=== PATIENT | male | born 1980 | race Caucasian/White ===

== ENCOUNTER 2019-03-09 16:14 | Emergency (ER) | payer OTHER, SELFPAY ==
[2019-03-09 16:24] VITALS: BP 132/73; PULSE 71; RESP 18; TEMP 36.9; O2SAT 99; BMI 28.8
--- NOTE | 2019-03-09 16:59 | ED.SKABFB ---
HPI - Skin/Abscess/Foreign Bdy <Tiffany Moe PA-C - Last Filed: 03/09/19 21:08> General Chief complaint: Skin/Abscess/Foreign Body Stated complaint: right elbow pain since yesterday,swelling and heat Time Seen by Provider: 03/09/19 16:59 Source: patient Mode of arrival: ambulatory Limitations: no limitations History of Present Illness HPI narrative: This Healthy left-handed 38-year-old male comes to ED secondary to right elbow redness, pain and swelling. He states that 02/23 he was wrestling on an asphalt surface, and scraped this superficially, like road rash. He states that he just rinsed it off, nothing embedded. He states that he had some small scratches and scabs that have been somewhat itchy, and admits that he has been scratching the area a little bit, but no open wounds. He states he noticed this was a little bit red and sore last night, describes as a feeling of soreness like he would get after playing racquetball, but has not been playing. He states that the elbow feels tight as well as sore and redness has worsened today and warm to touch. He denies any fever, pain is not acutely worse. Redness is not clearly worse today but definitely worse than last night per his . He states he does sometimes sit with pressure on that elbow when driving or when at his desk. Related Data Previous Rx's Medication Instructions Recorded sulfamethoxazole-trimethoprim 1 tab PO BID 7 Days #14 tab 03/09/19 [Bactrim DS] cephalexin [Keflex] 500 mg PO Q6H 7 Days #28 cap 03/10/19 Allergies Allergy/AdvReac Type Severity Reaction Status Date / Time No Known Drug Allergies Allergy Verified 03/09/19 16:29 Review of Systems <Tiffany Moe PA-C - Last Filed: 03/09/19 21:08> Review of Systems ROS Unobtainable: All systems reviewed & are unremarkable except as noted in HPI and below PFSH <Tiffany Moe PA-C - Last Filed: 03/09/19 21:08> Medical History (Updated 03/10/19 @ 20:57 by Tiffany Moe PA-C) No chronic problems (Resolved) Status post vasectomy (Resolved) Surgical History (Updated 03/09/19 @ 17:29 by Tiffany Moe PA-C) Status post labral repair of shoulder (Resolved) Social History Smoking Status: Former smoker Social History Smoking Status: Former smoker Exam <Tiffany Moe PA-C - Last Filed: 03/09/19 21:08> Narrative Exam Narrative: GENERAL APPEARANCE: Patient sitting comfortably, in no distress. LUNGS: Clear to auscultation bilaterally. HEART: Rate and rhythm regular without murmur, normal S1 and S2, no S3 or S4. MUSCULOSKELETAL: Right elbow is moderate effusion not localized over the olecranon. Tender to touch over the olecranon and bony prominences. He has full active range of motion of the elbow. No tenderness over the forearm or upper arm or elsewhere over the right upper extremity NEUROVASCULAR: Right hand and fingers are warm and pink with brisk cap refill, sensation is grossly intact DERMATOLOGIC: Warm erythema over the olecranon and central elbow, some patchy extension surrounding Initial Vital Signs Initial Vital Signs: Vital Signs Temperature 98.4 F 03/09/19 16:24 Pulse Rate 71 03/09/19 16:24 Respiratory Rate 18 03/09/19 16:24 Blood Pressure 132/73 03/09/19 16:24 Pulse Oximetry 99 03/09/19 16:24 <Montserrat Srivastava DO - Last Filed: 03/12/19 23:49> Initial Vital Signs Initial Vital Signs: Vital Signs Temperature 98.4 F 03/09/19 16:24 Pulse Rate 71 03/09/19 16:24 Respiratory Rate 18 03/09/19 16:24 Blood Pressure 132/73 03/09/19 16:24 Pulse Oximetry 99 03/09/19 16:24 Course <Tiffany Moe PA-C - Last Filed: 03/09/19 21:08> Additional Information: Margins of erythema inked for monitoring. Patient agrees to return if any acutely worsening sx over weekend and will f/u with PCP first of next week Orders Ordered: Discontinued Medications Ibuprofen (Advil) 800 mg PO NOW ONE Stop: 03/09/19 17:16 Last Admin: 03/09/19 17:30 Dose: 800 mg Trimethoprim/Sulfamethoxazole (Bactrim Ds Prepack) 1 bottle MISC SEEINSTR ONE Stop: 03/09/19 18:10 Last Admin: 03/09/19 18:12 Dose: 1 bottle Vital Signs - 8 hr 03/09/19 16:24 03/09/19 18:12 Temperature 98.4 F Pulse Rate 71 67 Respiratory Rate 18 15 Blood Pressure 132/73 Blood Pressure [Left Arm] 143/78 H Pulse Oximetry 99 100 <Montserrat Srivastava DO - Last Filed: 03/12/19 23:49> Orders Ordered: Discontinued Medications Ibuprofen (Advil) 800 mg PO NOW ONE Stop: 03/09/19 17:16 Last Admin: 03/09/19 17:30 Dose: 800 mg Trimethoprim/Sulfamethoxazole (Bactrim Ds Prepack) 1 bottle MISC SEEINSTR ONE Stop: 03/09/19 18:10 Last Admin: 03/09/19 18:12 Dose: 1 bottle Vital Signs - 8 hr 03/09/19 16:24 03/09/19 18:12 Temperature 98.4 F Pulse Rate 71 67 Respiratory Rate 18 15 Blood Pressure 132/73 Blood Pressure [Left Arm] 143/78 H Pulse Oximetry 99 100 MDM - Skin/Abscess/Foreign Bdy <Tiffany Moe PA-C - Last Filed: 03/09/19 21:08> Lab Data Attestation: I reviewed the patient's lab results. Result diagrams: 03/09/19 17:25 03/09/19 17:25 Lab Results 03/09/19 03/09/19 Range/Units 17:25 17:25 WBC 14.0 H (4.5-11.0) X10^3/uL RBC 4.56 (4.5-5.9) X10^6/uL Hgb 13.6 (13.5-17.5) g/dL Hct 41.1 (41-53) % MCV 90.1 (80-100) fL MCH 29.9 (26-34) PG MCHC 33.2 (30-36) % RDW 12.7 (11.6-14.8) % Plt Count 199 (150-400) X10^3/uL Neut % (Auto) 72.1 (50-75) % Lymph % (Auto) 18.4 L (25-40) % [place] % (Auto) 7.3 (3-14) % Eos % (Auto) 1.8 L (2-4) % Baso % (Auto) 0.4 (0-2) % Neut # (Auto) 88539 H (1475-6018) /uL Lymph # (Auto) 2600 (9961-5748) /uL [place] # (Auto) 1000 H (0-900) /uL Eos # (Auto) 200 (0-450) /uL Baso # (Auto) 100 (0-100) /uL Sodium 138 (137-145) mmol/L Potassium 4.0 (3.4-5.1) mmol/L Chloride 104 (98-107) mmol/L Carbon Dioxide 28 (22-32) mmol/L BUN 20 (9-20) mg/dL Creatinine 0.90 (0.66-1.25) mg/dL Estimated GFR > 60.0 (>60) mL/min BUN/Creatinine Ratio 22.2 H (6-22) Glucose 72 (70-100) mg/dL Calcium 9.2 (8.4-10.2) mg/dL Imaging Data elbow: Radiologist's impression: [place] [address] XRay Report Signed Patient: Pito Tomas#: [id number] : 1980Acct:[id number] Age/Sex: 38 / MDate of Service: 03/09/19 Loc: ED Accession Number: [id number] Procedure: XR elbow RT min 3V Ordering Provider: Tiffany Moe P.A-C PROCEDURE: XR ELBOW RT MIN 3V INDICATIONS: bone pain, cellulitis TECHNIQUE: 3 views of the elbow were acquired. COMPARISON: None. FINDINGS: Bones: No fractures or dislocations. No suspicious bony lesions. Soft tissues: No elbow joint effusion. Soft tissue swelling is seen. IMPRESSION: Soft tissue swelling is seen, which is consistent with the given history of cellulitis. No focal bony abnormality is seen. If there is strong suspicion for developing osteomyelitis, please consider a dedicated MRI with contrast for further evaluation (assuming that there is no contraindication to MRI). Dictated by: Tc Barroso M.D. on 03/09/2019 at 16:45 Approved by: Tc Barroso M.D. on 03/09/2019 at 16:46 <Montserrat Srivastava DO - Last Filed: 03/12/19 23:49> Lab Data Lab Results 03/09/19 03/09/19 Range/Units 17:25 17:25 WBC 14.0 H (4.5-11.0) X10^3/uL RBC 4.56 (4.5-5.9) X10^6/uL Hgb 13.6 (13.5-17.5) g/dL Hct 41.1 (41-53) % MCV 90.1 (80-100) fL MCH 29.9 (26-34) PG MCHC 33.2 (30-36) % RDW 12.7 (11.6-14.8) % Plt Count 199 (150-400) X10^3/uL Neut % (Auto) 72.1 (50-75) % Lymph % (Auto) 18.4 L (25-40) % [place] % (Auto) 7.3 (3-14) % Eos % (Auto) 1.8 L (2-4) % Baso % (Auto) 0.4 (0-2) % Neut # (Auto) 07114 H (1858-3415) /uL Lymph # (Auto) 2600 (8824-4082) /uL [place] # (Auto) 1000 H (0-900) /uL Eos # (Auto) 200 (0-450) /uL Baso # (Auto) 100 (0-100) /uL Sodium 138 (137-145) mmol/L Potassium 4.0 (3.4-5.1) mmol/L Chloride 104 (98-107) mmol/L Carbon Dioxide 28 (22-32) mmol/L BUN 20 (9-20) mg/dL Creatinine 0.90 (0.66-1.25) mg/dL Estimated GFR > 60.0 (>60) mL/min BUN/Creatinine Ratio 22.2 H (6-22) Glucose 72 (70-100) mg/dL Calcium 9.2 (8.4-10.2) mg/dL Discharge Plan Departure Patient Disposition: Home Clinical Impression: Cellulitis Qualifiers: Site of cellulitis: extremity Site of cellulitis of extremity: upper extremity Laterality: right Qualified Code(s): L03.113 - Cellulitis of right upper limb Discharge Date/Time: 03/09/19 18:19 Interventions: ED Discharge Assessment Last Done: 03/09/19 18:17 Instructions: DI for Cellulitis -- Child Activity Restrictions/Additional Instructions: As we talked about, you should return if you have acutely worsening symptoms such as rapidly spreading redness past the borders that we outlined, increased swelling or pain, or new symptoms such as fever over the weekend. Take your 1st dose of antibiotic now and 2nd dose at bedtime if you go to bed late or early in the morning. I have sent in a prescription for you to your pharmacy to medicinal plant picker tomorrow so you can continue this. Be sure to keep all pressure off of the elbow area as we talked about. Prescriptions: New sulfamethoxazole-trimethoprim [Bactrim DS] 800-160 mg tablet 1 tab PO BID 7 Days Qty: 14 RF: 0 No Action cephalexin [Keflex] 500 mg capsule 500 mg PO Q6H 7 Days Qty: 28 RF: 0 Referrals: Miki Saucedo [Non-Staff] - <Montserrat Srivastava DO - Last Filed: 03/12/19 23:49> Cosign ED Attending Kangature Attestation: I was immediately available in the department for consultation. Documentation has been reviewed. I agree with assessment and plan.
--- NOTE | 2019-03-09 17:15 | DI.RAD.S_ITS ---
PROCEDURE: XR ELBOW RT MIN 3V INDICATIONS: bone pain, cellulitis TECHNIQUE: 3 views of the elbow were acquired. COMPARISON: None. FINDINGS: Bones: No fractures or dislocations. No suspicious bony lesions. Soft tissues: No elbow joint effusion. Soft tissue swelling is seen. IMPRESSION: Soft tissue swelling is seen, which is consistent with the given history of cellulitis. No focal bony abnormality is seen. If there is strong suspicion for developing osteomyelitis, please consider a dedicated MRI with contrast for further evaluation (assuming that there is no contraindication to MRI). Dictated by: Tc Barroso M.D. on 03/09/2019 at 16:45 Approved by: Tc Barroso M.D. on 03/09/2019 at 16:46
--- NOTE | 2019-03-09 17:26 | ED_ITS ---
HPI - Skin/Abscess/Foreign Bdy <Tiffany Moe PA-C - Last Filed: 03/09/19 21:08> General Chief complaint: Skin/Abscess/Foreign Body Stated complaint: right elbow pain since yesterday,swelling and heat Time Seen by Provider: 03/09/19 16:59 Source: patient Mode of arrival: ambulatory Limitations: no limitations History of Present Illness HPI narrative: This Healthy left-handed 38-year-old male comes to ED secondary to right elbow redness, pain and swelling. He states that 02/23 he was wrestling on an asphalt surface, and scraped this superficially, like road rash. He states that he just rinsed it off, nothing embedded. He states that he had some small scratches and scabs that have been somewhat itchy, and admits that he has been scratching the area a little bit, but no open wounds. He states he noticed this was a little bit red and sore last night, describes as a feeling of soreness like he would get after playing racquetball, but has not been playing. He states that the elbow feels tight as well as sore and redness has worsened today and warm to touch. He denies any fever, pain is not acutely worse. Redness is not clearly worse today but definitely worse than last night per his . He states he does sometimes sit with pressure on that elbow when driving or when at his desk. Related Data Previous Rx's Medication Instructions Recorded sulfamethoxazole-trimethoprim 1 tab PO BID 7 Days #14 tab 03/09/19 [Bactrim DS] cephalexin [Keflex] 500 mg PO Q6H 7 Days #28 cap 03/10/19 Allergies Allergy/AdvReac Type Severity Reaction Status Date / Time No Known Drug Allergies Allergy Verified 03/09/19 16:29 Review of Systems <Tiffany Moe PA-C - Last Filed: 03/09/19 21:08> Review of Systems ROS Unobtainable: All systems reviewed & are unremarkable except as noted in HPI and below PFSH <Tiffany Moe PA-C - Last Filed: 03/09/19 21:08> Medical History (Updated 03/10/19 @ 20:57 by Tiffany Moe PA-C) No chronic problems (Resolved) Status post vasectomy (Resolved) Surgical History (Updated 03/09/19 @ 17:29 by Tiffany Moe PA-C) Status post labral repair of shoulder (Resolved) Social History Smoking Status: Former smoker Social History Smoking Status: Former smoker Exam <Tiffany Moe PA-C - Last Filed: 03/09/19 21:08> Narrative Exam Narrative: GENERAL APPEARANCE: Patient sitting comfortably, in no distress. LUNGS: Clear to auscultation bilaterally. HEART: Rate and rhythm regular without murmur, normal S1 and S2, no S3 or S4. MUSCULOSKELETAL: Right elbow is moderate effusion not localized over the olecranon. Tender to touch over the olecranon and bony prominences. He has full active range of motion of the elbow. No tenderness over the forearm or upper arm or elsewhere over the right upper extremity NEUROVASCULAR: Right hand and fingers are warm and pink with brisk cap refill, sensation is grossly intact DERMATOLOGIC: Warm erythema over the olecranon and central elbow, some patchy extension surrounding Initial Vital Signs Initial Vital Signs: Vital Signs Temperature 98.4 F 03/09/19 16:24 Pulse Rate 71 03/09/19 16:24 Respiratory Rate 18 03/09/19 16:24 Blood Pressure 132/73 03/09/19 16:24 Pulse Oximetry 99 03/09/19 16:24 <Montserrat Srivastava DO - Last Filed: 03/12/19 23:49> Initial Vital Signs Initial Vital Signs: Vital Signs Temperature 98.4 F 03/09/19 16:24 Pulse Rate 71 03/09/19 16:24 Respiratory Rate 18 03/09/19 16:24 Blood Pressure 132/73 03/09/19 16:24 Pulse Oximetry 99 03/09/19 16:24 Course <Tiffany Moe PA-C - Last Filed: 03/09/19 21:08> Additional Information: Margins of erythema inked for monitoring. Patient agrees to return if any acutely worsening sx over weekend and will f/u with PCP first of next week Orders Ordered: Discontinued Medications Ibuprofen (Advil) 800 mg PO NOW ONE Stop: 03/09/19 17:16 Last Admin: 03/09/19 17:30 Dose: 800 mg Trimethoprim/Sulfamethoxazole (Bactrim Ds Prepack) 1 bottle MISC SEEINSTR ONE Stop: 03/09/19 18:10 Last Admin: 03/09/19 18:12 Dose: 1 bottle Vital Signs - 8 hr 03/09/19 16:24 03/09/19 18:12 Temperature 98.4 F Pulse Rate 71 67 Respiratory Rate 18 15 Blood Pressure 132/73 Blood Pressure [Left Arm] 143/78 H Pulse Oximetry 99 100 <Montserrat Srivastava DO - Last Filed: 03/12/19 23:49> Orders Ordered: Discontinued Medications Ibuprofen (Advil) 800 mg PO NOW ONE Stop: 03/09/19 17:16 Last Admin: 03/09/19 17:30 Dose: 800 mg Trimethoprim/Sulfamethoxazole (Bactrim Ds Prepack) 1 bottle MISC SEEINSTR ONE Stop: 03/09/19 18:10 Last Admin: 03/09/19 18:12 Dose: 1 bottle Vital Signs - 8 hr 03/09/19 16:24 03/09/19 18:12 Temperature 98.4 F Pulse Rate 71 67 Respiratory Rate 18 15 Blood Pressure 132/73 Blood Pressure [Left Arm] 143/78 H Pulse Oximetry 99 100 MDM - Skin/Abscess/Foreign Bdy <Tiffany Moe PA-C - Last Filed: 03/09/19 21:08> Lab Data Attestation: I reviewed the patient's lab results. Result diagrams: 03/09/19 17:25 03/09/19 17:25 Lab Results 03/09/19 03/09/19 Range/Units 17:25 17:25 WBC 14.0 H (4.5-11.0) X10^3/uL RBC 4.56 (4.5-5.9) X10^6/uL Hgb 13.6 (13.5-17.5) g/dL Hct 41.1 (41-53) % MCV 90.1 (80-100) fL MCH 29.9 (26-34) PG MCHC 33.2 (30-36) % RDW 12.7 (11.6-14.8) % Plt Count 199 (150-400) X10^3/uL Neut % (Auto) 72.1 (50-75) % Lymph % (Auto) 18.4 L (25-40) % [place] % (Auto) 7.3 (3-14) % Eos % (Auto) 1.8 L (2-4) % Baso % (Auto) 0.4 (0-2) % Neut # (Auto) 80400 H (6723-7895) /uL Lymph # (Auto) 2600 (9696-4521) /uL [place] # (Auto) 1000 H (0-900) /uL Eos # (Auto) 200 (0-450) /uL Baso # (Auto) 100 (0-100) /uL Sodium 138 (137-145) mmol/L Potassium 4.0 (3.4-5.1) mmol/L Chloride 104 (98-107) mmol/L Carbon Dioxide 28 (22-32) mmol/L BUN 20 (9-20) mg/dL Creatinine 0.90 (0.66-1.25) mg/dL Estimated GFR > 60.0 (>60) mL/min BUN/Creatinine Ratio 22.2 H (6-22) Glucose 72 (70-100) mg/dL Calcium 9.2 (8.4-10.2) mg/dL Imaging Data elbow: Radiologist's impression: [place] [address] XRay Report Signed Patient: Pito Tomas#: [id number] : 1980Acct:[id number] Age/Sex: 38 / MDate of Service: 03/09/19 Loc: ED Accession Number: [id number] Procedure: XR elbow RT min 3V Ordering Provider: Tiffany Moe P.A-C PROCEDURE: XR ELBOW RT MIN 3V INDICATIONS: bone pain, cellulitis TECHNIQUE: 3 views of the elbow were acquired. COMPARISON: None. FINDINGS: Bones: No fractures or dislocations. No suspicious bony lesions. Soft tissues: No elbow joint effusion. Soft tissue swelling is seen. IMPRESSION: Soft tissue swelling is seen, which is consistent with the given history of cellulitis. No focal bony abnormality is seen. If there is strong suspicion for developing osteomyelitis, please consider a dedicated MRI with contrast for further evaluation (assuming that there is no contraindication to MRI). Dictated by: Tc Barroso M.D. on 03/09/2019 at 16:45 Approved by: Tc Barroso M.D. on 03/09/2019 at 16:46 <Montserrat Srivastava DO - Last Filed: 03/12/19 23:49> Lab Data Lab Results 03/09/19 03/09/19 Range/Units 17:25 17:25 WBC 14.0 H (4.5-11.0) X10^3/uL RBC 4.56 (4.5-5.9) X10^6/uL Hgb 13.6 (13.5-17.5) g/dL Hct 41.1 (41-53) % MCV 90.1 (80-100) fL MCH 29.9 (26-34) PG MCHC 33.2 (30-36) % RDW 12.7 (11.6-14.8) % Plt Count 199 (150-400) X10^3/uL Neut % (Auto) 72.1 (50-75) % Lymph % (Auto) 18.4 L (25-40) % [place] % (Auto) 7.3 (3-14) % Eos % (Auto) 1.8 L (2-4) % Baso % (Auto) 0.4 (0-2) % Neut # (Auto) 53914 H (2212-1662) /uL Lymph # (Auto) 2600 (0442-7054) /uL [place] # (Auto) 1000 H (0-900) /uL Eos # (Auto) 200 (0-450) /uL Baso # (Auto) 100 (0-100) /uL Sodium 138 (137-145) mmol/L Potassium 4.0 (3.4-5.1) mmol/L Chloride 104 (98-107) mmol/L Carbon Dioxide 28 (22-32) mmol/L BUN 20 (9-20) mg/dL Creatinine 0.90 (0.66-1.25) mg/dL Estimated GFR > 60.0 (>60) mL/min BUN/Creatinine Ratio 22.2 H (6-22) Glucose 72 (70-100) mg/dL Calcium 9.2 (8.4-10.2) mg/dL Discharge Plan Departure Patient Disposition: Home Clinical Impression: Cellulitis Qualifiers: Site of cellulitis: extremity Site of cellulitis of extremity: upper extremity Laterality: right Qualified Code(s): L03.113 - Cellulitis of right upper limb Discharge Date/Time: 03/09/19 18:19 Interventions: ED Discharge Assessment Last Done: 03/09/19 18:17 Instructions: DI for Cellulitis -- Child Activity Restrictions/Additional Instructions: As we talked about, you should return if you have acutely worsening symptoms such as rapidly spreading redness past the borders that we outlined, increased swelling or pain, or new symptoms such as fever over the weekend. Take your 1st dose of antibiotic now and 2nd dose at bedtime if you go to bed late or early in the morning. I have sent in a prescription for you to your pharmacy to cigar packer and picker tomorrow so you can continue this. Be sure to keep all pressure off of the elbow area as we talked about. Prescriptions: New sulfamethoxazole-trimethoprim [Bactrim DS] 800-160 mg tablet 1 tab PO BID 7 Days Qty: 14 RF: 0 No Action cephalexin [Keflex] 500 mg capsule 500 mg PO Q6H 7 Days Qty: 28 RF: 0 Referrals: Miki Saucedo [Non-Staff] - <Montserrat Srivastava DO - Last Filed: 03/12/19 23:49> Cosign ED Attending Cossebastianature Attestation: I was immediately available in the department for consultation. Documentation has been reviewed. I agree with as mami and plan.
[2019-03-09] MEDS: IBUPROFEN 400 MG TABLET 800 MG PO (17:30)
[2019-03-09 17:31] LABS: Add Manual Diff / Slide Review NO; Basophils Absolute Auto 100 /uL (0-100); Basophils Percent Auto 0.4 % (0-2); Eosinophils Absolute Auto 200 /uL (0-450); Eosinophils Percent Auto 1.8 % (2-4); Hematocrit 41.1 % (41-53); Hemoglobin 13.6 g/dL (13.5-17.5); Lymphocytes Absolute Auto 2600 /uL (1100-4500); Lymphocytes Percent Auto 18.4 % (25-40); Mean Corpuscular HGB Conc 33.2 % (30-36); Mean Corpuscular Hemoglobin 29.9 PG (26-34); Mean Corpuscular Volume 90.1 fL (80-100); Monocytes Absolute Auto 1000 /uL (0-900); Monocytes Percent Auto 7.3 % (3-14); Neutrophils Absolute Auto 10100 /uL (1500-7000); Neutrophils Percent Auto 72.1 % (50-75); Platelet Count 199 X10^3/uL (150-400); Red Blood Cell Count 4.56 X10^6/uL (4.5-5.9); Red Cell Distribution Width 12.7 % (11.6-14.8)
[2019-03-09 17:47] LABS: BUN Creatinine Ratio 22.2 (6-22); Blood Urea Nitrogen 20 mg/dL (9-20); Calcium 9.2 mg/dL (8.4-10.2); Carbon Dioxide 28 mmol/L (22-32); Chloride 104 mmol/L (98-107); Estimated Glomerular Filt Rate > 60.0 mL/min (>60); Glucose 72 mg/dL (70-100); HEMOLYSIS < 15 (0-50); Sodium 138 mmol/L (137-145)
[2019-03-09 18:12] VITALS: BP 143/78; PULSE 67; RESP 15; O2SAT 100
[2019-03-09] MEDS: TRIMETH/SULFA 160/800 PREPACK 1 BOTTLE MISC (18:12)
== END 2019-03-09 18:19 | disposition home or self-care (01) ==
PROVIDERS: Emergency Provider Internal Medicine
DX: L03.113 Cellulitis of right upper limb (principal)
CPT/HCPCS: 36415; 73080; 80048; 85025; 99282; 99284

== ENCOUNTER 2019-03-10 20:01 | Emergency (ER) | payer OTHER, SELFPAY ==
[2019-03-10 20:15] VITALS: BP 133/69; PULSE 75; RESP 14; TEMP 37; O2SAT 96; BMI 28.2
--- NOTE | 2019-03-10 20:26 | ED.SKABFB ---
HPI - Skin/Abscess/Foreign Bdy <Tiffany Moe PA-C - Last Filed: 03/10/19 21:52> General Chief complaint: Skin/Abscess/Foreign Body Stated complaint: states cellulitis of right arm Time Seen by Provider: 03/10/19 20:05 Source: patient Mode of arrival: ambulatory Limitations: no limitations History of Present Illness HPI narrative: This 38-year-old male returns to ED secondary to right upper extremity/elbow cellulitis. The redness has extended beyond markings on part of the arm, however he states the pain is better and arm is less stiff with movement, he does not feel like swelling is worse. He had a fever of 100.6 at home earlier, took ibuprofen and this is better. He states he feels somewhat tired, otherwise well. He did start Bactrim yesterday. He denies any other new concerns on systems review, and thought that this should be rechecked. Related Data Previous Rx's Medication Instructions Recorded sulfamethoxazole-trimethoprim 1 tab PO BID 7 Days #14 tab 03/09/19 [Bactrim DS] cephalexin [Keflex] 500 mg PO Q6H 7 Days #28 cap 03/10/19 Allergies Allergy/AdvReac Type Severity Reaction Status Date / Time No Known Drug Allergies Allergy Verified 03/09/19 16:29 Review of Systems <Tiffany Moe PA-C - Last Filed: 03/10/19 21:52> Review of Systems ROS Unobtainable: All systems reviewed & are unremarkable except as noted in HPI and below PFSH <Tiffany Moe PA-C - Last Filed: 03/10/19 21:52> Medical History (Updated 03/10/19 @ 20:57 by Tiffany Moe PA-C) No chronic problems (Resolved) Status post vasectomy (Resolved) Surgical History (Updated 03/09/19 @ 17:29 by Tiffany Moe PA-C) Status post labral repair of shoulder (Resolved) Social History Smoking Status: Former smoker Social History Smoking Status: Former smoker Exam <Tiffany Moe PA-C - Last Filed: 03/10/19 21:52> Narrative Exam Narrative: GENERAL APPEARANCE: Patient sitting comfortably, in no distress. LUNGS: Clear to auscultation bilaterally. HEART: Rate and rhythm regular without murmur, normal S1 and S2, no S3 or S4. DERM: Right UE pink, warm erythema around the olecranon extending to the forearm. This extends about 6-7 cm beyond the inked margin proximally, just at 1 edge. There is recession of the erythema distally. MUSCULOSKELETAL: Mild fluctuance over the olecranon and surrounding tissues, no circumscribed edema. Mild tenderness over the olecranon. Full active range of motion this of the right elbow without tenderness Initial Vital Signs Initial Vital Signs: Vital Signs Temperature 98.6 F 03/10/19 20:15 Pulse Rate 75 03/10/19 20:15 Respiratory Rate 14 03/10/19 20:15 Blood Pressure 133/69 03/10/19 20:15 Pulse Oximetry 96 03/10/19 20:15 <Domingo Geronimo DO - Last Filed: 03/11/19 03:25> Initial Vital Signs Initial Vital Signs: Vital Signs Temperature 98.6 F 03/10/19 20:15 Pulse Rate 75 03/10/19 20:15 Respiratory Rate 14 03/10/19 20:15 Blood Pressure 133/69 03/10/19 20:15 Pulse Oximetry 96 03/10/19 20:15 Course <Tiffany Moe PA-C - Last Filed: 03/10/19 21:52> Additional Information: Patient was also seen by Dr. Geronimo who agrees no intervention or further w/u needed now given patient just started antibiotics yesterday. His pain and swelling are somewhat improved. He did have some extension of erythema in 1 area but some recession others. Keflex was added to provide more strep coverage, and he agrees to return if acutely worsening symptoms [place]. Orders Ordered: Discontinued Medications Cefazolin Sodium (Keflex) 1 bottle [facility] Stop: 03/10/19 20:54 Last Admin: 03/10/19 20:54 Dose: 500 mg Vital Signs - 8 hr 03/10/19 20:15 Temperature 98.6 F Pulse Rate 75 Respiratory Rate 14 Blood Pressure 133/69 Pulse Oximetry 96 <Domingo Geronimo DO - Last Filed: 03/11/19 03:25> Orders Ordered: Discontinued Medications Cefazolin Sodium (Keflex) 1 bottle [facility] Stop: 03/10/19 20:54 Last Admin: 03/10/19 20:54 Dose: 500 mg Vital Signs - 8 hr 03/10/19 20:15 Temperature 98.6 F Pulse Rate 75 Respiratory Rate 14 Blood Pressure 133/69 Pulse Oximetry 96 Discharge Plan Departure Patient Disposition: Home Clinical Impression: Cellulitis Qualifiers: Site of cellulitis: extremity Site of cellulitis of extremity: upper extremity Laterality: right Qualified Code(s): L03.113 - Cellulitis of right upper limb Discharge Date/Time: 03/10/19 21:10 Interventions: ED Discharge Assessment Last Done: 03/10/19 21:08 Instructions: DI for Cellulitis -- Adult Activity Restrictions/Additional Instructions: We are going to add a 2nd antibiotic to give you more coverage for a common skin bacteria (Streptococcus). This is called Keflex or cephalexin. 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 It will take the antibiotics about 72 hours to become fully active, and after this I would not expect to see any spreading redness, increased swelling or pain or fever. Please monitor closely, and again return if acutely worse as we talked about. Otherwise, [place] at you have planned. Please continue ibuprofen 800 mg every 8 hours for fever and pain, and add Tylenol to this as needed. I have sent the prescription to [facility] in [place] for you to picker machine operator tomorrow since they are open Prescriptions: New cephalexin [Keflex] 500 mg capsule 500 mg PO Q6H 7 Days Qty: 28 RF: 0 No Action sulfamethoxazole-trimethoprim [Bactrim DS] 800-160 mg tablet 1 tab PO BID 7 Days Qty: 14 RF: 0 Referrals: [facility] [Provider Group] <Domingo Geronimo DO - Last Filed: 03/11/19 03:25> Cosign ED Attending Kangature Attestation: I was immediately available in the department for consultation. Documentation has been reviewed. I agree with assessment and plan.
[2019-03-10] MEDS: cephALEXin 250 MG PREPACK 1 BOTTLE MISC (20:54)
== END 2019-03-10 21:10 | disposition home or self-care (01) ==
PROVIDERS: Emergency Provider Internal Medicine
DX: L03.113 Cellulitis of right upper limb (principal)
CPT/HCPCS: 99282; 99283

== ENCOUNTER 2020-06-14 17:00 | Emergency (ER) | payer OTHER, SELFPAY ==
[2020-06-14] VITALS (9 sets, daily range): BP systolic 114–144; BP diastolic 61–76; PULSE 52–60; RESP 12–20; TEMP 36.6; O2SAT 95–100
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
[2020-06-14] MEDS: IBUPROFEN 400 MG TABLET 800 MG PO (18:15)
[2020-06-14] MEDS: SODIUM CHLORIDE 0.9% 1,000 ML 1000 ML IV (18:15)
[2020-06-14 18:21] LABS: Add Manual Diff / Slide Review NO; Basophils Absolute Auto 100 /uL (0-100); Basophils Percent Auto 0.7 % (0-2); Eosinophils Absolute Auto 200 /uL (0-450); Eosinophils Percent Auto 2.4 % (2-4); Hematocrit 41.8 % (41-53); Hemoglobin 13.9 g/dL (13.5-17.5); Lymphocytes Absolute Auto 2800 /uL (1100-4500); Lymphocytes Percent Auto 33.6 % (25-40); Mean Corpuscular HGB Conc 33.3 % (30-36); Mean Corpuscular Hemoglobin 29.5 PG (26-34); Mean Corpuscular Volume 88.7 fL (80-100); Monocytes Absolute Auto 700 /uL (0-900); Monocytes Percent Auto 8.8 % (3-14); Neutrophils Absolute Auto 4600 /uL (1500-7000); Neutrophils Percent Auto 54.5 % (50-75); Platelet Count 226 X10^3/uL (150-400); Red Blood Cell Count 4.72 X10^6/uL (4.5-5.9); Red Cell Distribution Width 12.7 % (11.6-14.8); White Blood Cell Count 8.4 X10^3/uL (4.5-11.0)
[2020-06-14 18:25] LABS: Prothrombin Time 11.5 SECONDS (10.1-12.7)
[2020-06-14 18:28] LABS: PTT Partial Thromboplastin Tim 26 SECONDS (26.4-36.2)
[2020-06-14 18:31] LABS: Alanine Aminotransferase 22 IU/L (<50); Albumin 4.2 g/dL (3.5-5.0); Albumin Globulin Ratio 1.3 (1.0-2.8); Alkaline Phosphatase 57 U/L (38-126); Aspartate Aminotransferase 37 IU/L (17-59); BUN Creatinine Ratio 17.7 (6-22); Bilirubin Total 0.6 mg/dL (0.2-1.3); Blood Urea Nitrogen 17 mg/dL (9-20); Carbon Dioxide 26 mmol/L (22-32); Chloride 105 mmol/L (98-107); Estimated Glomerular Filt Rate > 60.0 mL/min (>60); Globulin 3.2 g/dL (1.7-4.1); Glucose 88 mg/dL (70-100); HEMOLYSIS < 15 (0-50); Lipase 70 U/L (23-300); Potassium 4.1 mmol/L (3.4-5.1); Sodium 138 mmol/L (137-145); Total Protein 7.4 g/dL (6.3-8.2)
[2020-06-14] MEDS: HYDROMORPHONE 1 MG INJ IV (18:37)
[2020-06-14] MEDS: HYDROMORPHONE 0.5 MG INJ IV (20:46)
--- NOTE | 2020-06-14 21:33 | PC.NURSE ---
arm sling placed on pt's right arm prior to discharge and an bakari wrap on his left hand. good pulses b/l
--- NOTE | 2020-06-15 09:58 | PC.NURSE ---
Pharmacy called regarding cyclobenzaprine script. They do not have 7.5 mg tabs, Dr. Edi richded script to be 10 mg tabs, same directions.
== END 2020-06-14 21:33 | disposition home or self-care (01) ==
PROVIDERS: Emergency Provider Student in an Organized Health Care Education/Training Program
DX: S22.41XA Multiple fractures of ribs, right side, initial encounter for closed fracture (principal); S43.421A Sprain of right rotator cuff capsule, initial encounter; S30.1XXA Contusion of abdominal wall, initial encounter; S66.912A Strain of unspecified muscle, fascia and tendon at wrist and hand level, left hand, initial encounter; V29.9XXA Motorcycle rider (driver) (passenger) injured in unspecified traffic accident, initial encounter
CPT/HCPCS: 36415; 71045; 71100; 73030; 73130; 74177; 80053; 83690; 85025; 85610; 85730; 86850; 86900; 86901; 93005; 96361; 96374; 96376; 99284; J1170; Q9967

== ENCOUNTER → 2020-07-01 14:19 | Outpatient (CLI) | payer OTHER, SELFPAY ==
--- NOTE | 2020-07-01 | DI.RAD.S_ITS ---
PROCEDURE: FL ARTHROGRAM SHOULDER RT INDICATIONS: Pain in unspecified shoulder TECHNIQUE: The indications, alternatives, benefits, risks, and complications of the procedure were explained to the patient. Written informed consent was obtained and placed in the chart. The shoulder was examined fluoroscopically and a site for needle placement chosen for entry into the glenohumeral joint from an anterior approach. The skin was prepped and draped in a sterile fashion, and 1% lidocaine infiltrated from skin down to joint capsule. A spinal needle was inserted into the glenohumeral joint, and a small amount of iodinated contrast media injected to confirm intra-articular placement of the needle tip. This was followed by approximately 12 mL dilute solution of a gadolinium containing MR contrast agent. The needle was removed and a dressing was applied. The patient was given postprocedural instructions and sent to the MR suite for MR imaging. FINDINGS: A single fluoroscopic spot image demonstrates intra-articular location of injected iodinated contrast. IMPRESSION: Successful fluoroscopically guided administration of dilute Gadolinium solution into the shoulder joint for MR arthrogram. Dictated by: Teodoro Wang M.D. on 07/01/2020 at 16:01 Approved by: Teodoro Wang M.D. on 07/01/2020 at 16:03
--- NOTE | 2020-07-01 | DI.MRI.S_ITS ---
PROCEDURE: MR SHOULDER RT W CON INDICATIONS: Pain in unspecified shoulder - RIGHT TECHNIQUE: After the administration of 12 mL of dilute intra-articular Gadolinium contrast, oblique coronal T1 and T2 spin echo with fat saturation, oblique sagittal T1 spin echo with and without fat saturation, oblique sagittal T2 fast spin echo with fat saturation, axial T1 spin echo with fat saturation through the shoulder. COMPARISON: [facility], CR, XR SHOULDER RT MIN 2V, 06/14/2020, 17:41. [facility], RF, FL ARTHROGRAM SHOULDER RT, 07/01/2020, 13:37. FINDINGS: Image quality: Excellent. Rotator cuff: There is moderate supraspinatus and infraspinatus tendinosis. The teres minor tendon is intact. Hyperintense T1-weighted signal is seen within the subscapularis tendon that is most likely related to extravasation during the arthrogram injection, but could obscure an underlying subscapularis tendon injury. There is no significant rotator cuff muscle atrophy. Bones and bursae: No bone marrow contusions or fractures. Subchondral cystic changes are seen in the posterior glenoid cartilage loss is seen in the posterior glenoid and the medial humeral head. Mild to moderate acromioclavicular joint osteoarthrosis. A fluid collection is seen superior to the acromioclavicular joint measuring approximately 18 x 15 x 6 mm, compatible with a ganglion cyst. There is moderate synovial hypertrophy in the glenohumeral joint. Capsule and soft tissues: There is nondisplaced tearing of the posterosuperior labrum with a small paralabral cyst that measures 5 x 5 x 3 mm. The labrum and glenohumeral ligaments appear intact. The long head of the biceps tendon demonstrates normal location and morphology. No intra-articular bodies. Edema within the distal right the trapezius muscle is compatible with a low-grade muscle strain. IMPRESSION: 1. Nondisplaced tearing of the posterosuperior labrum with a small paralabral cyst measuring up to 5 mm in maximum dimension. 2. Moderate supraspinatus and infraspinatus tendinosis. 3. Low-grade strain of the distal trapezius muscle. 4. Mild to moderate acromioclavicular joint osteoarthrosis. A ganglion cyst is seen superior to the acromioclavicular joint measuring up to 18 mm in size. 5. High-grade cartilage loss in the medial humeral head and posterior glenoid with subchondral cystic changes. Moderate synovial hypertrophy is seen in the glenohumeral joint. Dictated by: Ravi Vaughn M.D. on 07/01/2020 at 16:24 Approved by: Ravi Vaughn M.D. on 07/01/2020 at 16:37
== END ==
PROVIDERS: Referring Provider Orthopaedic Surgery; Visit Provider Orthopaedic Surgery
DX: M25.511 Pain in right shoulder (principal); M19.011 Primary osteoarthritis, right shoulder; M67.411 Ganglion, right shoulder; S29.012A Strain of muscle and tendon of back wall of thorax, initial encounter; S43.431A Superior glenoid labrum lesion of right shoulder, initial encounter
CPT/HCPCS: 23350; 73040; 73222; 77002

== ENCOUNTER → 2020-07-15 06:38 | Outpatient (CLI) | payer OTHER, SELFPAY ==
--- NOTE | 2020-07-15 | DI.MRI.S_ITS ---
PROCEDURE: MR KNEE LT WO CON INDICATIONS: Pain in left knee TECHNIQUE: Noncontrast sagittal PD fast spin echo and T2 fast spin echo with fat saturation, sagittal 3-D FLASH with fat saturation; coronal T1 spin echo and PD fast spin echo with fat saturation, and axial PD fast spin echo with fat saturation through the knee. COMPARISON: None. FINDINGS: Image quality: Excellent. Menisci: Medial meniscus intact. Lateral meniscus intact. Cruciate ligaments: Anterior cruciate ligament appears grossly intact although there is mild intrasubstance signal change and thickening raising the possibility of low-grade sprain. Posterior cruciate ligament appears intact. Medial structures: The medial collateral ligament appears intact. Semimembranosus tendon appears intact. Visualized portions of the pes anserinus tendons appear normal. No abnormal bursal fluid. Lateral structures: The lateral collateral ligament demonstrates thickening and intrasubstance signal change in keeping with low grade sprain, statistically chronic, although technically age indeterminate. Biceps femoris tendon appears intact. Popliteus tendon grossly unremarkable. Iliotibial band appears intact. Anterior structures: Quadriceps tendon intact. Medial and lateral patellofemoral ligaments intact. Distal patellar chronic tendinopathy and mild osseous irregularity suggestive of [place]-Schlatter disease. Hoffa's fat pad unremarkable. Bones and cartilage: Focal marrow edema involving the anterior tibial plateau and the anterior medial femoral condyle suggestive of contusions and hyperextension mechanism injury. A nondisplaced incomplete fracture line image 12/6. Popliteal fossa structures appear grossly intact. Within the medial compartment, no focal cartilage defect Within the lateral compartment, no focal cartilage defect Within the patellofemoral compartment, no focal cartilage defect Joint space: No joint effusion. No Cloud's cyst. No specific evidence of intra-articular loose body. IMPRESSION: Focal marrow contusions involving the anterior medial femoral condyle and tibial plateau suggestive of hyperextension mechanism of injury. Nondisplaced incomplete subcentimeter fracture line seen involving the anterior medial femoral condyle . Possible low-grade sprain of the anterior cruciate ligament. Recommend correlation to clinical exam findings as this is technically indeterminate. Probably chronic patellar tendinopathy as detailed above Dictated by: José Miguel Jones M.D. on 07/15/2020 at 8:53 Approved by: José Miguel Jones M.D. on 07/15/2020 at 9:02
== END ==
PROVIDERS: Referring Provider Orthopaedic Surgery; Visit Provider Orthopaedic Surgery
DX: M25.562 Pain in left knee (principal)
CPT/HCPCS: 73721